=== PATIENT | female | born 1970 | race Caucasian/White ===

== ENCOUNTER 2019-06-08 10:34 | Emergency (ER) | payer BC ==
[~2019-06-08] VITALS: Ht 172.7 cm; Wt 70.8 kg
--- NOTE | 2019-06-08 10:50 | NUR ---
PATIENT SEEN AND EVALUATED BY DR. BRADY, NO SHORTNESS OF BREATH NOTED.
--- NOTE | 2019-06-08 11:01 | NUR ---
Patient discharged to home in stable condition. Written and verbal after care instructions given. Patient verbalizes understanding of instruction.
[2019-06-08 11:29] VITALS: BP 117/64
== END 2019-06-08 11:29 | disposition home or self-care (01) ==
LOC: ER 10:36
DX: R06.02 Shortness of breath (principal); R05 Cough; R09.81 Nasal congestion; R50.9 Fever, unspecified

== ENCOUNTER 2019-06-09 12:53 | Emergency (ER) | payer BC ==
[~2019-06-09] VITALS: Ht 175.3 cm; Wt 74.8 kg
[2019-06-09 13:06] VITALS: BP 114/75
== END 2019-06-09 14:38 | disposition home or self-care (01) ==
LOC: ER 12:53
DX: B34.2 Coronavirus infection, unspecified (principal); R06.02 Shortness of breath; M19.90 Unspecified osteoarthritis, unspecified site
CPT/HCPCS: 71045-TC